=== PATIENT | male | born 1955 | race Caucasian/White ===

== ENCOUNTER 2024-01-13 14:12 | Inpatient (IN) ==
[2024-01-13] MEDS: ONDANSETRON INJ 2 MG/ML 2 ML VIAL IV STA (15:06)
[2024-01-13 15:27] LABS: Basophils # (auto) 0.02 K/uL (0.00-0.20); Basophils % (auto) 0.2 %; Eosinophils # (auto) 0.01 K/uL (0.00-0.50); Eosinophils % (auto) 0.1 %; Hematocrit (blood only) 40.6 % (42.0-52.0); Hemoglobin 13.9 g/dl (14.0-18.0); Immature Granulocytes # (auto) 0.03 K/uL (0.01-0.20); Immature Granulocytes % (auto) 0.3 %; Lymphocytes # (auto) 1.28 K/uL (1.20-3.40); Lymphocytes % (auto) 12.3 %; Mean Corpuscular Hemoglobin 30.3 pg (25.0-34.0); Mean Corpuscular Hgb Conc 34.2 g/dL (32.0-36.0); Mean Corpuscular Volume 88.6 fL (80.0-100.0); Mean Platelet Volume 9.3 fL (9.4-12.4); Monocytes # (auto) 0.46 K/uL (0.11-0.59); Monocytes % (auto) 4.4 %; Neutrophils # (auto) 8.58 K/uL (1.40-6.50); Neutrophils % (auto) 82.7 %; Platelet Count 531 K/uL (130-400); RDW Coefficient of Variation 13.1 % (11.5-14.5); RDW Standard Deviation 42.3 fL (36.4-46.3); Red Blood Count 4.58 M/uL (4.70-6.10); White Blood Count 10.38 K/ul (4.8-10.8)
[2024-01-13 15:39] LABS: Appearance Urine Clear (Clear); Bacteria Urine Automated None Seen (None Seen); Bilirubin Urine Negative (Negative); Blood Urine 1+ (Negative); Cast Urine Automated 0-2 /lpf (0-2); Color Urine Yellow; Epithelial Cell Urine Auto 0-2 /hpf (0-2); Glucose Urine UA Negative (Negative); Ketones Urine 1+ (Negative); Leukocyte Esterase Urine Negative (Negative); Nitrite Urine Negative (Negative); Protein Urine Negative (Negative); Specific Gravity Urine 1.024 (1.000-1.030); Urobilinogen Urine Negative (Negative); WBC Urine Automated 0-5 /hpf (0-5); pH Urine 5.5 (4.5-7.5)
--- NOTE | 2024-01-13 15:40 | CT Scan Report ---
ABDOMEN AND PELVIS CT WITHOUT CONTRAST CT DOSE: 1028.26 mGy.cm HISTORY: Acute right-sided flank pain flank pain TECHNIQUE: Multiaxial CT images of the abdomen and pelvis were performed without contrast. A dose lo wering technique was utilized adhering to the principles of ALARA. COMPARISON STUDY: 10/31/2015 FINDINGS: Coronary artery calcifications. Mild groundglass densities of the left lung base likely ate lectatic. 3 mm solid nodule of the basal left lower lobe on image 15 series 3 is stable and benign. N o free air. There is a lipoma of the lateral left chest wall measuring up to 8.3 cm in AP dimension. The unenhanced spleen, pancreas and adrenal glands are unremarkable. Unremarkable gallbladder. There is a 1.6 and meter hypodense lesion within the hepatic dome on image 12 series 2, also present on bren or study where it demonstrated imaging characteristics suggestive of a hemangioma. Similar appearing stable 1.2 cm lesion of the right hepatic lobe on image 15 series 2. Bilateral perinephric stranding, right greater than left. No left-sided hydronephrosis. There is mild -to-moderate right-sided hydroureteronephrosis secondary to an obstructing 6 x 4 x 5 mm calculus of t he right ureter at the level of the superior endplate L4. Decompressed bladder with wall thickening. Prostatomegaly. Small fat filled inguinal hernias. Surgical clips in the left inguinal tissues. Ather osclerosis of the aorta. No lymphadenopathy. No bowel obstruction. Mural fibrofatty changes noted throughout the large bowel which is partially de compressed. Noninflamed appendix. Unremarkable soft tissues. No acute fracture. IMPRESSION: 1. Mild to moderate right-sided hydroureteronephrosis secondary to an obstructing 6 mm calculus at th e level of L4. 2. No bowel obstruction or bowel wall thickening. ACT 112: Negative or not required by law. The above report was generated using voice recognition software. It may contain grammatical, syntax o r spelling errors. Electronically signed by: Surya Cardona M.D. 01/13/2024 3:38 PM
[2024-01-13 15:41] LABS: BUN Creatinine Ratio 22.2 (10-20); Calcium 9.9 mg/dl (8.6-10.3); Creatinine Clr Calc Pharmacy 67.7 ml/min; Potassium 3.6 mmol/L (3.5-5.1)
[2024-01-13] MEDS: KETOROLAC TROMETHAMINE 15 MG/ML VIAL IV STA (15:47)
[2024-01-13] MEDS: MoRPHine SULFATE 4 MG/ML 1 ML CARP\\VIAL IV STA (15:49)
--- NOTE | 2024-01-13 16:22 | Emergency Department Note ---
History of Present Illness General Chief Complaint: Flank Pain Stated Complaint: RT SIDE/BACK PAIN Time Seen by Provider: 01/13/24 14:34 History of Present Illness Provider Complaint: flank pain Onset (ago): 3 day(s) Pain Consistency: intermittent Location: R flank Severity: severe Maximum Pain Intensity: 10 Current Pain Intensity: 9 Quality: + stabbing and + sharp Relieved By: + nothing Exacerbated By: + nothing Context: + history of similar episodes (Feels like previous kidney stones); no foreign travel, no possible food poisoning, no sick contacts, no recent antibiotic use, no recent surgery/procedure or no recent injury Associated Symptoms: + nausea; no vomiting, no diarrhea, no fever, no chills, no constipation, no dysuria, no hematemesis, no hematochezia, no melena, no hematuria, no anorexia, no syncope, no headache and no breathing difficulty Home Medications Medication Instructions Recorded Confirmed Type glucosamine 750 [id number] 1 tab PO DAILY 02/08/19 01/13/24 History no1 644 mg-C 30 mg-soraya 1 mg tablet (Osteo Bi-Flex Triple Strength) losartan 100 mg tablet 100 mg PO DAILY #90 tabs 10/24/23 01/13/24 Rx rosuvastatin 5 mg tablet 5 mg PO DAILY #90 tabs 10/24/23 01/13/24 Rx hydrochlorothiazide 25 mg tablet 25 mg PO DAILY #90 tabs 11/28/23 01/13/24 Rx Allergies Allergy/AdvReac Type Severity Reaction Status Date / Time aspirin AdvReac Intermediate GI BLEEDING Verified 10/24/23 08:30 Past Med/Surg History Problem List (Updated 01/13/24 @ 17:07 by Akbar Paniagua MD) Hydronephrosis concurrent with and due to calculi of kidney and ureter (Acute) Kidney stone on right side Hyperlipidemia Cerumen impaction Chewing tobacco nicotine dependence Lightheadedness HTN (hypertension) Lump of skin of back (Chronic) Medical History Abdominal pain Cough GERD (gastroesophageal reflux disease) Surgical History History of hernia repair History of surgery on arm Family History Denies family history of Ovarian cancer Prostate cancer Myocardial infarction Breast cancer Colorectal cancer Social History Smoking Status: Never smoker Second Hand Exposure: No; Do You Dip or Chew Tobacco: Yes; Hx Alcohol Use: No Hx Substance Use: No Preferred Language: Urdu Communication Ability: Effective Visual Impairment: Limited Hearing Ability: Normal Contact Worker Lithography Required: No Beliefs That Will Affect Care: None marital status: Current Living Situation: Spouse current occupational status: employed and retired current occupation: Part-Time [employer] How many Children do You have: 4 Feels Safe at Home: Yes Childhood Exposure to Second-Hand Smoke: Yes Diet: regular caffeine: Yes (Coffee ) during the past year weight has: remained stable Dental Care, Regularly: No Physical Activity Frequency: Daily Seatbelt Use: never Sunscreen Use: No Assistive Devices: Glasses Physical Exam 2 Vital Signs: Vital Signs - 24 hr 01/13/24 14:13 01/13/24 14:35 01/13/24 15:30 Temperature 36.6 C Temperature Source Temporal Artery Sc an Pulse Rate 86 Pulse Rate [Finger ] 82 82 Pulse Rhythm [Fing er] Regular Pulse Strength [Fi nger] Normal Respiratory Rate 18 20 18 Respiratory Effort / Characteristics Non-Labored Sponta neous Non-Labored Sponta neous Respiratory Depth Normal Normal Respiratory Patter n Regular Regular Blood Pressure 172/93 H Blood Pressure [Ri ght Arm] 160/105 H 160/97 H Blood Pressure Alka n 119 Blood Pressure Alka n [Right Arm] 123 118 Blood Pressure Pos ition [Right Arm] Semi-fowlers Lying Pulse Oximetry 97 100 98 Oxygen Delivery Me thod Room Air Room Air Sepsis Recent Feve r Within 48 Hours No Sepsis New/Unexpla ined Change in Men link Status N/A Sepsis Action Take n by Nursing No Action Required 01/13/24 16:43 01/13/24 16:53 Temperature Temperature Source Pulse Rate 79 Pulse Rate [Finger ] 87 Pulse Rhythm [Fing er] Regular Pulse Strength [Fi nger] Normal Respiratory Rate 18 Respiratory Effort / Characteristics Non-Labored Sponta neous Respiratory Depth Normal Respiratory Patter n Blood Pressure Blood Pressure [Ri ght Arm] 141/93 H Blood Pressure Alka n Blood Pressure Alka n [Right Arm] 109 Blood Pressure Pos ition [Right Arm] Sitting Pulse Oximetry 96 Oxygen Delivery Me thod Room Air Sepsis Recent Feve r Within 48 Hours Sepsis New/Unexpla ined Change in Men link Status Sepsis Action Take n by Nursing Physical Exam: Physical Exam GENERAL: oriented to person, place, and time. appears well-developed and well- nourished. She does not appear distressed. HENT: Exam performed. -Head: Normocephalic and atraumatic. -Right Ear: External ear normal. No mastoid erythema -Left Ear: External ear normal. No mastoid erythema -Mouth/Throat: The oropharynx is clear and moist. No trismus in the jaw. No dental abscesses or uvula swelling. No oropharyngeal exudate or tonsillar abscesses. EYES: Conjunctivae and EOM are normal.Right eye exhibits no discharge. Left eye exhibits no discharge. No scleral icterus. NECK: Normal range of motion. Neck supple. No JVD present. No tracheal deviation and normal range of motion present. CV: Normal rate, regular rhythm, normal heart sounds and intact distal pulses. There is no peripheral edema. Palpable radial pulses bue. PULM/CHEST: Effort normal and breath sounds normal. No respiratory distress. No stridor. no wheezes.no rales. -Chest Wall: no tenderness to palpation ABD: The abdomen is soft. Bowel sounds are normal. no distension. No mass is present. There is no tenderness. There is no rebound, no guarding, no Luu's sign and no tenderness at McBurney's point. Rovsig negative. Right-sided CVA tenderness. MUSC/SKEL: Normal range of motion. There is no peripheral edema, tenderness or deformity. NEURO: Motor and sensation grossly intact. SKIN: Skin is warm and dry. not diaphoretic. PSYCH: normal mood and affect. Behavior is normal. Judgment and thought content normal. Course Course 1434: The patient was evaluated in room A10. A complete history and physical exam was performed Cardiac monitoring: An order was placed for continuous cardiac monitoring. The monitor shows a rate of 80 with sinus rhythm interpreted by me 1623: Vital signs stable. Labs are unremarkable. Imaging shows 6 mm stone with hydroureteronephrosis. Patient states he does not wish pain to go home. Patient will be admitted [facility] team with urology on consult. Dr. Aldrich [facility] is aware the patient and urology has been notified. 1657: Dr. Fitzpatrick aware of the patient. Administered Medications Discontinued Medications Hydromorphone HCl (Hydromorphone Inj 0.5 Mg/0.5 Ml Syr) 0.5 mg IV NOW STA Stop: 01/13/24 16:42 Last Admin: 01/13/24 16:49 Dose: 0.5 mg Documented By: INOCENCIA Ketorolac Tromethamine (Ketorolac Tromethamine 15 Mg/Ml Vial) 15 mg IV NOW STA Stop: 01/13/24 14:48 Last Admin: 01/13/24 15:47 Dose: Not Given Documented By: JEVONV Morphine Sulfate (Morphine Sulfate 4 Mg/Ml 1 Ml Carp\Vial) 4 mg IV NOW STA Stop: 01/13/24 15:40 Last Admin: 01/13/24 15:49 Dose: 4 mg Documented By: INOCENCIA Ondansetron HCl (Ondansetron Inj 2 Mg/Ml 2 Ml Vial) 4 mg IV NOW STA Stop: 01/13/24 14:48 Last Admin: 01/13/24 15:06 Dose: 4 mg Documented By: INOCENCIA Medical Decision Making Laboratory Data Attestation: I reviewed the patient's lab results. 01/13/24 14:32 01/13/24 14:32 Lab Results 01/13/24 01/13/24 Range/Units 14:32 14:34 WBC 10.38 (4.8-10.8) K/ul RBC 4.58 L (4.70-6.10) M/uL Hgb 13.9 L (14.0-18.0) g/dl Hct 40.6 L (42.0-52.0) % MCV 88.6 (80.0-100.0) fL MCH 30.3 (25.0-34.0) pg MCHC 34.2 (32.0-36.0) g/dL RDW Std Deviation 42.3 (36.4-46.3) fL RDW Coeff of Angie 13.1 (11.5-14.5) % Plt Count 531 H (130-400) K/uL MPV 9.3 L (9.4-12.4) fL Immature Gran % (Auto) 0.3 % Neut % (Auto) 82.7 % Lymph % (Auto) 12.3 % [place] % (Auto) 4.4 % Eos % (Auto) 0.1 % Baso % (Auto) 0.2 % Neut # (Auto) 8.58 H (1.40-6.50) K/uL Lymph # (Auto) 1.28 (1.20-3.40) K/uL [place] # (Auto) 0.46 (0.11-0.59) K/uL Eos # (Auto) 0.01 (0.00-0.50) K/uL Baso # (Auto) 0.02 (0.00-0.20) K/uL Immature Gran # (Auto) 0.03 (0.01-0.20) K/uL Sodium 138 (136-145) mmol/L Potassium 3.6 (3.5-5.1) mmol/L Chloride 100 (98-107) mmol/L Carbon Dioxide 27 (21-32) mmol/L Anion Gap 11 (3-11) BUN 22 (6-23) mg/dl Creatinine 0.99 (0.6-1.4) mg/dl Est Cr Clr Drug Dosing 67.7 ml/min eGFR 83.49 BUN/Creatinine Ratio 22.2 H (10-20) Glucose 100 H (70-99(Fasting)) mg/dl Calcium 9.9 (8.6-10.3) mg/dl Urine Color Yellow Urine Appearance Clear (Clear) Urine pH 5.5 (4.5-7.5) Ur Specific [place] 1.024 (1.000-1.030) Urine Protein Negative (Negative) Urine Glucose (UA) Negative (Negative) Urine Ketones 1+ H (Negative) Urine Blood 1+ H (Negative) Urine Nitrite Negative (Negative) Urine Bilirubin Negative (Negative) Urine Urobilinogen Negative (Negative) Ur Leukocyte Esterase Negative (Negative) Urine WBC (Auto) 0-5 (0-5) /hpf Urine RBC (Auto) 11-20 H (0-2) /hpf U Hyaline Cast (Auto) 0-2 (0-2) /lpf U Epithel Cells (Auto) 0-2 (0-2) /hpf Urine Bacteria (Auto) None Seen (None Seen) Imaging Data Radiologist's Impression: Abdomen/Pelvis CT 01/13/24 14:[address] WITHOUT CONTRAST CT DOSE: 1028.26 mGy.cm HISTORY: Acute right-sided flank pain flank pain TECHNIQUE: Multiaxial CT images of the abdomen and pelvis were performed without contrast. A dose lowering technique was utilized adhering to the principles of ALARA. COMPARISON STUDY: 10/31/2015 FINDINGS: Coronary artery calcifications. Mild groundglass densities of the left lung base likely atelectatic. 3 mm solid nodule of the basal left lower lobe on image 15 series 3 is stable and benign. No free air. There is a lipoma of the lateral left chest wall measuring up to 8.3 cm in AP dimension. The unenhanced spleen, pancreas and adrenal glands are unremarkable. Unremarkable gallbladder. There is a 1.6 and meter hypodense lesion within the hepatic dome on image 12 series 2, also present on prior study where it demonstrated imaging characteristics suggestive of a hemangioma. Similar appearing stable 1.2 cm lesion of the right hepatic lobe on image 15 series 2. Bilateral perinephric stranding, right greater than left. No left-sided hydronephrosis. There is [id number] right-sided hydroureteronephrosis secondary to an obstructing 6 x 4 x 5 mm calculus of the right ureter at the level of the superior endplate L4. Decompressed bladder with wall thickening. Prostatomegaly. Small fat filled inguinal hernias. Surgical clips in the left inguinal tissues. Atherosclerosis of the aorta. No lymphadenopathy. No bowel obstruction. Mural fibrofatty changes noted throughout the large bowel which is partially decompressed. Noninflamed appendix. Unremarkable soft tissues. No acute fracture. IMPRESSION: 1. Mild to moderate right-sided hydroureteronephrosis secondary to an obstructing 6 mm calculus at the level of L4. 2. No bowel obstruction or bowel wall thickening. ACT 112: Negative or not required by law. The above report was generated using voice recognition software. It may contain grammatical, syntax or spelling errors. Electronically signed by: Surya Cardona M.D. 01/13/2024 3:38 PM [facility] Narrative 1434: The patient was evaluated in room A10. A complete history and physical exam was performed Cardiac monitoring: An order was placed for continuous cardiac monitoring. The monitor shows a rate of 80 with sinus rhythm interpreted by me 1623: Vital signs stable. Labs are unremarkable. Imaging shows 6 mm stone with hydroureteronephrosis. Patient states he does not wish pain to go home. Patient will be admitted to the [facility] team with urology on consult. Dr. Aldrich [facility] hospitalist is aware the patient and urology has been notified. 1656: Dr. Fitzpatrick aware of the patient. Impression & Plan Hydronephrosis concurrent with and due to calculi of kidney and ureter Discharge Plan Visit Data Chief Complaint: Flank Pain Stated Complaint: RT SIDE/BACK PAIN ED Provider: Akbar Paniagua Discharge Problem: Hydronephrosis concurrent with and due to calculi of kidney and ureter Patient Disposition: Admitted As Inpatient Forms Stand Alone Forms: My [facility] Prescriptions Prescriptions: No Action rosuvastatin 5 mg tablet 5 mg PO DAILY Qty: 90 3RF hydrochlorothiazide 25 mg tablet 25 mg PO DAILY Qty: 90 3RF Osteo Bi-Flex Triple Strength 750 mg-644 mg- 30 mg-1 mg tablet 1 tab PO DAILY losartan 100 mg tablet 100 mg PO DAILY Qty: 90 3RF Referrals Referrals: Beto Malloy DO [Primary Care Provider] -
--- NOTE | 2024-01-13 16:36 | History & Physical Report ---
Date of Service January 13, 2024 Assessment & Plan (1) Kidney stone on right side: Plan: Assessment: 1. Acute right-sided hydronephrosis secondary to obstructive urolithiasis 6 mm stone. NPO. Consult urology. I personally communicated with Dr. Fitzpatrick. Tentative plan is for the OR today for cystoscopy and stenting. At this point we will add Flomax. Will hold off on IV fluids due to the national IV fluid shortage. And the fact the patient has a normal creatinine and he is going to the OR tonight. 2. History of nephrolithiasis. In the past has been able to pass his kidney stones. 3. History of hypertension. Will continue his home medications with exception of his hydrochlorothiazide. 4. History of dyslipidemia. 5. History of osteoarthritis. Plan: As described above. Please refer to orders for further planning. History of Present Illness Chief Complaint: Right flank pain. Primary Care Provider: Beto Malloy, This is a pleasant 68-year-old male who has a history of kidney stones who approximately 3 nights ago at midnight woke up with acute intense right-sided flank pain that only lasted for about 30 minutes. He laid on the couch and woke up without any pain the following morning. This afternoon around 1:00 he felt a "slight twinge" in his right flank which resolved spontaneously he then proceeded to go outside to mow the lawn on his riding lawnmower. He states he made about 2-3 laps around his lawn and then developed severe right-sided flank pain which was unrelenting. He then presented the ER for further evaluation and treatment. Noncontrast CT of the chest demonstrated a 6 mm right-sided stone with associated hydronephrosis. Creatinine was within normal limits. Other laboratory studies were unremarkable including a urinalysis only positive for microscopic hematuria negative for bacteria. Course in the ER the patient received some IV Toradol some IV morphine and IV Zofran. We are called admit the patient for further evaluation and treatment and urology has been consulted for further evaluation and management and consideration of cystoscopy with stent placement. Allergies Allergy/AdvReac Type Severity Reaction Status Date / Time aspirin AdvReac Intermediate GI BLEEDING Verified 10/24/23 08:30 Home Medications Medication Instructions Recorded Confirmed Type glucosamine 750 tp-[id number]-[id number] 1 tab PO DAILY 02/08/19 01/13/24 History no1 644 mg-C 30 mg-soraya 1 mg tablet (Osteo Bi-Flex Triple Strength) losartan 100 mg tablet 100 mg PO DAILY #90 tabs 10/24/23 01/13/24 Rx rosuvastatin 5 mg tablet 5 mg PO DAILY #90 tabs 10/24/23 01/13/24 Rx hydrochlorothiazide 25 mg tablet 25 mg PO DAILY #90 tabs 11/28/23 01/13/24 Rx Past Med/Surg History Problem List (Updated 01/13/24 @ 16:34 by Blaine Aldrich, PhD, DO) Kidney stone on right side Hyperlipidemia Cerumen impaction Chewing tobacco nicotine dependence Lightheadedness HTN (hypertension) Lump of skin of back (Chronic) Medical History Abdominal pain Cough GERD (gastroesophageal reflux disease) Surgical History History of hernia repair History of surgery on arm Family History Denies family history of Ovarian cancer Prostate cancer Myocardial infarction Breast cancer Colorectal cancer Social History Smoking Status: Never smoker Second Hand Exposure: No; Do You Dip or Chew Tobacco: Yes; Hx Alcohol Use: No Hx Substance Use: No Preferred Language: Belarusian Communication Ability: Effective Visual Impairment: Limited Hearing Ability: Normal Affiliate Marketing Manager Required: No Beliefs That Will Affect Care: None marital status: Current Living Situation: Spouse current occupational status: employed and retired current occupation: Part-Time [employer] How many Children do You have: 4 Feels Safe at Home: Yes Childhood Exposure to Second-Hand Smoke: Yes Diet: regular caffeine: Yes (Coffee ) during the past year weight has: remained stable Dental Care, Regularly: No Physical Activity Frequency: Daily Seatbelt Use: never Sunscreen Use: No Assistive Devices: Glasses Review of Systems Review of Systems: A 10 point review of system was obtained and unless otherwise stated here or in history of present illness are negative and noncontributory to chief complaint. Physical Exam 2 Physical Exam: In General: In general very pleasant 68-year-old male is alert and oriented x 3 at time my exam. He is in mild to moderate discomfort he just received morphine prior to me entering the room. He is accompanied by his [id number] at the time of my exam whom he grants permission to be in the room during my interview and examination. HEENT: Normocephalic atraumatic pupils are equal round and reactive to light bilaterally. No scleral icterus no conjunctival injection external auditory canals are patent septum is in the midline nose is without discharge oral mucosa is pink and moist without lesion. NECK: Supple no rigidity no lymphadenopathy no thyromegaly no carotid bruits no JVD no masses. HEART: Regular rate and rhythm I do not appreciate any ectopy or rub. No murmur. LUNGS: Clear to auscultation bilaterally and anteriorly with no evidence of adventitious sounds/wheezes rales or rhonchi. ABDOMEN: Soft nontender, no rebound, no peritoneal signs, positive bowel sounds, no appreciable organomegaly. EXTREMITIES: Intact, no peripheral cyanosis, clubbing or edema. Strength is 5 out of 5 in extremities x4.. NEUROLOGICAL: Cranial nerves II through XII are grossly intact with no focal deficit elicited upon examination. No tremor. Results & Data Results & Data Vital Signs (Past 12 Hours) Vital Signs Temp Pulse Pulse Resp BP BP Pulse Ox 01/13/24 15:30 82 18 160/97 H 98 01/13/24 14:35 82 20 160/105 H 100 01/13/24 14:13 36.6 C 86 18 172/93 H 97 O2 Del Method 01/13/24 15:30 Room Air 01/13/24 14:35 Room Air 01/13/24 14:13 Code Status & VTE Plan Code Status Full code. I personally discussed with patient at bedside. VTE Prophylaxis Plan VTE Prophylaxis will be ordered: Yes PG Care Time/CCT Total # of Minutes Spent Total Time Spent with Patient: Total time spent is greater than 50% in coordination of care (as documented) at patient's floor/unit and/or counseling patient: Coding Level of Care Code 21090 INT INP/OBS CARE 2/55MIN Diagnoses Kidney stone on right side N20.0
[2024-01-13] MEDS: HYDROmorphone INJ 0.5 MG/0.5 ML SYR IV STA (16:49)
[2024-01-13] MEDS ORDERED: ePHEDrine sulfate 50 MG/ML AMP IV PRN (17:21)
[2024-01-13] MEDS ORDERED: fentaNYL citrate PF 100 MCG/2 ML VIAL IV PRN (17:21)
[2024-01-13] MEDS ORDERED: ONDANSETRON INJ 2 MG/ML 2 ML VIAL IV PRN ×2 (17:21→19:12)
[2024-01-13] MEDS ORDERED: ATROPINE SULFATE 0.1 MG/ML 10ML SYR IV PRN (17:21)
--- NOTE | 2024-01-13 17:21 | Anesthesiology Consultation ---
Date of Service January 13, 2024 Assessment & Plan (1) Encounter for pre-operative examination: Chart Review Chart Review: Acceptable Risk for Surgery and Patient NOT seen in Pre Admission Testing Consults Requested none History Surgery Operation Date: 01/13/24 19:00 Proposed Procedures p Cystoscopy - Roman Fitzpatrick MD s Ureteral Stent Insertion/Removal - Roman Fitzpatrick MD Height/Weight Height: 5 ft 7 in Weight: 73.2 kg Allergies Allergy/AdvReac Type Severity Reaction Status Date / Time aspirin AdvReac Intermediate GI BLEEDING Verified 10/24/23 08:30 Medications Home Medications Medication Instructions Recorded Confirmed Last Taken glucosamine 750 [id number]-mzlgafwvkqf-byw 1 tab PO DAILY 02/08/19 01/13/24 Unknown no1 644 mg-C 30 mg-soraya 1 mg tablet (Osteo Bi-Flex Triple Strength) losartan 100 mg tablet 100 mg PO DAILY #90 tabs 10/24/23 01/13/24 Unknown rosuvastatin 5 mg tablet 5 mg PO DAILY #90 tabs 10/24/23 01/13/24 Unknown hydrochlorothiazide 25 mg tablet 25 mg PO DAILY #90 tabs 11/28/23 01/13/24 Unknown Past Medical History Medical History Abdominal pain Cough GERD (gastroesophageal reflux disease) Past Family History Family History Denies family history of Ovarian cancer Prostate cancer Myocardial infarction Breast cancer Colorectal cancer Past Surgical History Surgical History History of hernia repair History of surgery on arm Social History Smoking Status: Never smoker Do You Dip or Chew Tobacco: Yes Hx Alcohol Use: No Hx Substance Use: No Physical Exam Vital Signs Last Vital Signs Temp 97.9 F 01/13/24 14:13 Pulse 87 01/13/24 16:53 Resp 18 01/13/24 16:53 BP 141/93 H 01/13/24 16:53 Pulse Ox 96 01/13/24 16:53 O2 Del Method Room Air 01/13/24 16:53 Testing Laboratory Results 01/13/24 14:32 01/13/24 14:32 Urine Color Yellow 01/13/24 14:34 Urine Appearance Clear (Clear) 01/13/24 14:34 Urine pH 5.5 (4.5-7.5) 01/13/24 14:34 Ur Specific [place] 1.024 (1.000-1.030) 01/13/24 14:34 Urine Protein Negative (Negative) 01/13/24 14:34 Urine Glucose (UA) Negative (Negative) 01/13/24 14:34 Urine Ketones 1+ (Negative) H 01/13/24 14:34 Urine Nitrite Negative (Negative) 01/13/24 14:34 Ur Leukocyte Esterase Negative (Negative) 01/13/24 14:34 Urine WBC (Auto) 0-5 /hpf (0-5) 01/13/24 14:34 Urine RBC (Auto) 11-20 /hpf (0-2) H 01/13/24 14:34 U Hyaline Cast (Auto) 0-2 /lpf (0-2) 01/13/24 14:34 U Epithel Cells (Auto) 0-2 /hpf (0-2) 01/13/24 14:34 Urine Bacteria (Auto) None Seen (None Seen) 01/13/24 14:34 Electrocardiogram Date: 10/20/22 Findings: + NSR @
[2024-01-13] MEDS ORDERED: LIDOCAINE 2% 2 ML VIAL/AMP(20MG/ML) INFIL ONE ×3 (17:29)
[2024-01-13] MEDS ORDERED: PROPOFOL IV EMULSION 10 MG/ML 20 ML VIAL IV ONE (17:31)
[2024-01-13] MEDS ORDERED: fentaNYL citrate PF 100 MCG/2 ML VIAL ONE (17:33)
[2024-01-13] MEDS ORDERED: MIDAZOLAM HCL 1 MG/ML 2ML VIAL ONE (17:33)
--- NOTE | 2024-01-13 17:48 | Urology Consultation ---
Date of Consultation January 13, 2024 Assessment & Plan (1) Hydronephrosis concurrent with and due to calculi of kidney and ureter: Highly symptomatic from an obstructing right proximal ureteral calculus He has preserved his renal function with a creatinine of 0.99 and he has a leukocytosis of 10,000 He is afebrile and hemodynamically stable but extremely uncomfortable I have offered cystoscopy and right ureteral stent placement to decompress the kidney and alleviate his symptoms Risks, benefits, expectations reviewed Will plan to move forward and into the operating room History of Present Illness History of Present Illness Called by the emergency room to evaluate a patient in extreme discomfort secondary to a right proximal ureteral calculus Pain has developed and progressed significantly over the past 24 hours He has had prior kidney stones but never required surgery or stent He reports that his pain continues to come and go in waves and can be relatively extreme Some associated nausea and vomiting with this Good health overall Allergies Allergy/AdvReac Type Severity Reaction Status Date / Time aspirin AdvReac Intermediate GI BLEEDING Verified 10/24/23 08:30 Home Medications Medication Instructions Recorded Confirmed Type glucosamine 750 [id number] 1 tab PO DAILY 02/08/19 01/13/24 History no1 644 mg-C 30 mg-soraya 1 mg tablet (Osteo Bi-Flex Triple Strength) losartan 100 mg tablet 100 mg PO DAILY #90 tabs 10/24/23 01/13/24 Rx rosuvastatin 5 mg tablet 5 mg PO DAILY #90 tabs 10/24/23 01/13/24 Rx hydrochlorothiazide 25 mg tablet 25 mg PO DAILY #90 tabs 11/28/23 01/13/24 Rx Patient History Medical History Abdominal pain Cough GERD (gastroesophageal reflux disease) Surgical History History of hernia repair History of surgery on arm Family History Denies family history of Ovarian cancer Prostate cancer Myocardial infarction Breast cancer Colorectal cancer Social History Smoking Status: Never smoker Second Hand Exposure: No; Do You Dip or Chew Tobacco: Yes; Hx Alcohol Use: No Hx Substance Use: No Preferred Language: Rw[place]an Communication Ability: Effective Visual Impairment: Limited Hearing Ability: Normal Nutrition Intern Required: No Beliefs That Will Affect Care: None marital status: Current Living Situation: Spouse current occupational status: employed and retired current occupation: Part-Time [employer] How many Children do You have: 4 Feels Safe at Home: Yes Childhood Exposure to Second-Hand Smoke: Yes Diet: regular caffeine: Yes (Coffee ) during the past year weight has: remained stable Dental Care, Regularly: No Physical Activity Frequency: Daily Seatbelt Use: never Sunscreen Use: No Assistive Devices: Glasses Review of Systems Constitutional: no fever, no chills and no fatigue Eyes: no worsening vision Ear, Nose, Mouth, Throat: no facial pain and no pain with swallowing Respiratory: no cough and no dyspnea Cardiovascular: no chest pain and no palpitations Gastrointestinal: + abdominal pain and + nausea; no vomiti ng Musculoskeletal: no back pain Integumentary: no rash and no urticaria Neurologic: no gait abnormality and no unsteadiness Psychiatric: no behavioral changes and no depression Endocrine: no fatigue Physical Exam Constitutional: well developed and well nourished Neck: neck nontender Respiratory: normal respiratory effort; no respiratory distress and does not use accessory muscles Cardiovascular: Rate/Rhythm: regular rate Vessels: radial pulses present Extremities: no edema Gastrointestinal (Abdomen): Inspection/Auscultation: abdomen normal to inspection Percussion/Palpation: abdomen soft; abdomen nontender and no guarding Musculoskeletal: Head/Neck/Chest: normocephalic and head atraumatic Extremities: extremities normal to inspection Skin: no rashes and no lesions Trauma: no evidence of skin trauma Neurologic: awake; not obtunded Speech / Cognition: normal speech Motor/Sensory: no tremor Psychiatric: Orientation: alert and oriented x 3 Genitourinary: no CVA tenderness Lymphatic: no lymphadenopathy Results & Data Vital Signs (Past 12 Hours) Vital Signs Temp Pulse Pulse Resp BP BP Pulse Ox 01/13/24 17:41 86 18 156/102 H 95 01/13/24 17:33 86 18 156/102 H 95 01/13/24 16:53 87 18 141/93 H 96 01/13/24 16:43 79 01/13/24 16:12 82 18 95 01/13/24 15:30 82 18 160/97 H 98 01/13/24 14:35 82 20 160/105 H 100 01/13/24 14:13 36.6 C 86 18 172/93 H 97 O2 Del Method 01/13/24 17:41 Room Air 01/13/24 17:33 Room Air 01/13/24 16:53 Room Air 01/13/24 16:43 01/13/24 16:12 Room Air 01/13/24 15:30 Room Air 01/13/24 14:35 Room Air 01/13/24 14:13 PG Care Time/CCT Total # of Minutes Spent Total Time Spent with Patient: Total time spent is greater than 50% in coordination of care (as documented) at patient's floor/unit and/or counseling patient: Coding Level of Care Code 55282 IN/OBS CONSULT LVL 3,45M Diagnoses Hydronephrosis concurrent with and due to calculi of kidney and ureter N13.2
--- NOTE | 2024-01-13 18:24 | Operative Report ---
PG Post Operative Report Pre & Post Diagnosis Operation Date: 01/13/24 19:00 Pre-Op Diagnosis: Right Hydronephrosis Post-Op Diagnosis: Right Hydronephrosis I identified the patient and participated in the time-out.: Yes Procedure Operation Date: 01/13/24 19:00 Actual Procedures p Cystoscopy(Not Applicable) - Roman Fitzpatrick MD p Ureteral Stent Insertion/Removal(Right) - Roman Fitzpatrick MD Surgeon Roman Fitzpatrick MD [employer] Mechanic Supervisor none Estimated Blood Loss 0 Findings Consistent with Post-Op Diagnosis Specimens none Description of Procedure The patient was identified in the preoperative holding area, appropriate informed consents were reviewed and completed and the patient was transferred to the operative suite. Upon arrival, appropriate antibiotics and anesthesia were administered and the patient was placed in dorsal lithotomy position and prepped and draped in sterile fashion. We in the case to pass a 21 [place]ian cystoscope with 30 degree lens. Inspection revealed a healthy-appearing urethra and prostate. His bladder was unremarkable with ureteral orifices in orthotopic position. There were no tumors or stones. Following my full inspection, I turned my attention to the right UO and cannulated it with a sensor wire and a 5 [place]ian open-ended catheter. The wire advanced the kidney without difficulty and I proceeded to place a 6 [place]ian by 26 cm double-J stent. There was a good curl in the kidney as well as the bladder. His bladder was decompressed and he was reversed of anesthesia and taken to the recovery room in stable condition. There were no complications. I attest to the content of the Intraoperative Record and any orders documented therein. Any exceptions are noted below.
--- NOTE | 2024-01-13 18:43 | Fluoroscopy Report ---
INTRAOPERATIVE RADIOGRAPH CLINICAL HISTORY: Ureteral stent placement. Fluoro time: 9 seconds Ka,r: 1.69 mGy FINDINGS: A single spot fluoroscopic view of the right upper quadrant is correlated with abdominal CT performed the same day 01/13/2024. The image shows the proximal end of a right ureteral stent projec ting over the right upper quadrant. IMPRESSION: Intraoperative image from a right ureteral stent placement procedure as above. Electronically signed by: Panchito Tay M.D. 01/13/2024 6:42 PM
[2024-01-13] MEDS ORDERED: MoRPHine SULFATE 4 MG/ML 1 ML CARP\\VIAL IV PRN (19:12)
[2024-01-13] MEDS ORDERED: ACETAMINOPHEN 1,000 MG/100 ML VIAL IV PRN (19:12)
[2024-01-13] MEDS: TAMSULOSIN HCL 0.4 MG CAP PO SCH (20:49)
[2024-01-13] MEDS: KETOROLAC TROMETHAMINE 15 MG/ML VIAL IV PRN (20:51)
--- NOTE | 2024-01-14 07:27 | Hospitalist Progress Note ---
Date of Service January 14, 2024 Assessment & Plan Plan 1) Kidney stone on right side 1) Acute right-sided hydronephrosis secondary to obstructive urolithiasis 6 mm stone. - NPO, Consult urology, admitting doc communicated with Dr. Fitzpatrick. - Tentative plan is for the OR today for cystoscopy and stenting. At this point we will add Flomax. - Held off on IV fluids due to the national IV fluid shortage, normal creatinine and pt went to the OR last night - R. ureteral stent placed (cystoscopy not performed) 2) History of nephrolithiasis. - In the past has been able to pass his kidney stones. 3) History of hypertension. - Will continue his home medications (losartan) with exception of his hydrochlorothiazide. 4) History of dyslipidemia. - continue rosuvastatin, 5 mg, PO, daily 5) History of osteoarthritis Code status: Full code VTE Prophylaxis: SCD's (to knee) Disposition: Med-Surg w/ Tele FENGI: Regular diet Admission and Anticipated Discharge Date Admission Date: January 13, 2024 Results & Data Results & Data Vital Signs (Past 12 Hours) Vital Signs Temp Pulse Pulse Resp BP BP Pulse Ox 01/14/24 07:01 60 01/14/24 04:38 36.7 C 59 L 20 107/63 95 01/14/24 02:54 79 110/62 01/14/24 00:56 36.4 C L 71 20 98/60 L 95 01/13/24 21:59 73 01/13/24 20:13 36.5 C 86 20 171/104 H 96 01/13/24 20:10 89 O2 Del Method 01/14/24 07:01 01/14/24 04:38 Room Air 01/14/24 02:54 01/14/24 00:56 Room Air 01/13/24 21:59 01/13/24 20:13 Room Air 01/13/24 20:10
[2024-01-14 07:53] VITALS: O2SAT 94
[2024-01-14 07:54] LABS: Basophils # (auto) 0.01 K/uL (0.00-0.20); Basophils % (auto) 0.1 %; Eosinophils # (auto) 0.01 K/uL (0.00-0.50); Eosinophils % (auto) 0.1 %; Hematocrit (blood only) 37.4 % (42.0-52.0); Hemoglobin 12.5 g/dl (14.0-18.0); Immature Granulocytes # (auto) 0.03 K/uL (0.01-0.20); Immature Granulocytes % (auto) 0.3 %; Lymphocytes # (auto) 1.35 K/uL (1.20-3.40); Mean Corpuscular Hemoglobin 30.1 pg (25.0-34.0); Mean Corpuscular Hgb Conc 33.4 g/dL (32.0-36.0); Mean Corpuscular Volume 90.1 fL (80.0-100.0); Mean Platelet Volume 9.4 fL (9.4-12.4); Monocytes # (auto) 0.78 K/uL (0.11-0.59); Monocytes % (auto) 8.7 %; Neutrophils # (auto) 6.81 K/uL (1.40-6.50); Neutrophils % (auto) 75.8 %; Platelet Count 444 K/uL (130-400); RDW Coefficient of Variation 13.1 % (11.5-14.5); RDW Standard Deviation 43.4 fL (36.4-46.3); Red Blood Count 4.15 M/uL (4.70-6.10); White Blood Count 8.99 K/ul (4.8-10.8)
[2024-01-14 08:15] LABS: BUN Creatinine Ratio 23.7 (10-20); Calcium 9.1 mg/dl (8.6-10.3); Creatinine Clr Calc Pharmacy 72.1 ml/min; Potassium 4.1 mmol/L (3.5-5.1)
[2024-01-14] MEDS: ROSUVASTATIN CALCIUM 5 MG TAB PO SCH (08:42)
[2024-01-14] MEDS: LOSARTAN POTASSIUM 50 MG TAB PO SCH (08:42)
--- NOTE | 2024-01-14 10:03 | Billing Data ---
Date of Service January 14, 2024 Coding Level of Care Code 79406 IN/OBS DISCH 30 MIN/LESS
--- NOTE | 2024-01-14 10:03 | Discharge Summary ---
Discharge Summary Date of Service January 14, 2024 Principal Dx & Hospital Course #1 = Principal Diagnosis (1) Kidney stone on right side: Assessment: 1. Acute right-sided hydronephrosis secondary to obstructive urolithiasis 6 mm stone. Doing well s/p cysto and stenting. stable for discharge. outpatient urology f/u. 2. History of nephrolithiasis. In the past has been able to pass his kidney stones. discussed hydration. 3. probable BPH - nocturia/hesitancy. trial of flomax and finasteride. outpt PCP and urology f/u 4. History of hypertension. home on home meds 5. History of dyslipidemia. 6. History of osteoarthritis. Notes For Next Care Provider Medication Changes From Visit added flomax and finasteride for presumed BPH Admission HPI Per Admitting Provider This is a pleasant 68-year-old male who has a history of kidney stones who approximately 3 nights ago at midnight woke up with acute intense right-sided flank pain that only lasted for about 30 minutes. He laid on the couch and woke up without any pain the following morning. This afternoon around 1:00 he felt a "slight twinge" in his right flank which resolved spontaneously he then proceeded to go outside to mow the lawn on his riding lawnmower. He states he made about 2-3 laps around his lawn and then developed severe right-sided flank pain which was unrelenting. He then presented the ER for further evaluation and treatment. Noncontrast CT of the chest demonstrated a 6 mm right-sided stone with associated hydronephrosis. Creatinine was within normal limits. Other laboratory studies were unremarkable including a urinalysis only positive for microscopic hematuria negative for bacteria. Course in the ER the patient received some IV Toradol some IV morphine and IV Zofran. We are called admit the patient for further evaluation and treatment and urology has been consulted for further evaluation and management and consideration of cystoscopy with stent placement. Updated Medication List Medication Instructions Recorded Confirmed Type glucosamine 750 [id number] 1 tab PO DAILY 02/08/19 01/13/24 History no1 644 mg-C 30 mg-soraya 1 mg tablet (Osteo Bi-Flex Triple Strength) losartan 100 mg tablet 100 mg PO DAILY #90 tabs 10/24/23 01/13/24 Rx rosuvastatin 5 mg tablet 5 mg PO DAILY #90 tabs 10/24/23 01/13/24 Rx hydrochlorothiazide 25 mg tablet 25 mg PO DAILY #90 tabs 11/28/23 01/13/24 Rx finasteride 5 mg tablet 5 mg PO DAILY #30 tabs 01/14/24 Rx tamsulosin 0.4 mg capsule (Flomax) 0.4 mg PO HS #30 caps 01/14/24 Rx Hospital Stay Data Consultations 01/13/24 15:59 Consult Urology Routine ED Decision to Admit Stat Procedures Performed Operation Date: 01/13/24 19:00 Actual Procedures p Ureteral Stent Insertion/Removal, Cystoscopy(Right) - Roman Fitzpatrick MD Diagnostic Imagining Performed 01/13/24 14:50 CT abd pelvis wo con Stat 01/13/24 18:00 FL KUB Routine Total Time Total Time Spent Total Time Spent (In Minutes): <30
--- NOTE | 2024-01-14 11:06 | Urology Progress Note ---
Date of Service January 14, 2024 Assessment & Plan (1) Kidney stone on right side: Plan: Postop day #1 status post right stent placement Okay for discharge home We will arrange outpatient follow-up Admission and Anticipated Discharge Date Admission Date: January 13, 2024 Subjective Postop day #1 status post cystoscopy and stent placement yesterday Doing great overall Minimal stent discomfort Anxious to go home All labs appropriate Results & Data Vital Signs (Past 12 Hours) Vital Signs Temp Pulse Pulse Resp BP BP Pulse Ox 01/14/24 07:52 36.4 C L 65 16 120/69 94 01/14/24 07:01 60 01/14/24 04:38 36.7 C 59 L 20 107/63 95 01/14/24 02:54 79 110/62 01/14/24 00:56 36.4 C L 71 20 98/60 L 95 O2 Del Method 01/14/24 07:52 Room Air 01/14/24 07:01 01/14/24 04:38 Room Air 01/14/24 02:54 01/14/24 00:56 Room Air PG Care Time/CCT Total # of Minutes Spent Total Time Spent with Patient: Total time spent is greater than 50% in coordination of care (as documented) at patient's floor/unit and/or counseling patient: Coding Level of Care Code 94567 SUB INP/OBS CARE 2/35MIN Diagnoses Kidney stone on right side N20.0
[2024-01-14] MEDS: INFLUENZA VACC TS2024-25(65y+)/PF (IIV3) 0.5mL Syr IM ONE (12:11)
[2024-01-14 12:17] VITALS: BP 130/82; PULSE 75; RESP 18; TEMP 98.6
--- NOTE | 2024-01-17 08:48 | Anesthesiology Progress Note ---
Date of Service January 13, 2024 Anesthesia Post Procedure Pain Intensity Right Flank: Pain Intensity: 8 Transfer of Care Handoff Completed per policy Notes Mental Status: alert / awake / arousable and participated in evaluation Patient Amnestic to Procedure: Yes Nausea / Vomiting: adequately controlled Pain: adequately controlled Airway Patency, RR, SpO2: stable & adequate BP & HR: stable & adequate Hydration State: stable & adequate Anesthetic Complications: no major complications apparent and Pt Satisfied with anesthetic care
== END 2024-01-14 12:23 | disposition home or self-care (01) | DRG 661 ==
LOC: ED 14:12 → 2N 17:50 → OR 17:50 → 2N 17:51 → SUATTDRO 17:51